=== PATIENT | female | born 1955 | race African-American/Black ===

== ENCOUNTER 2020-04-20 08:44 | Outpatient (CLI) | payer OTHER, SELFPAY ==
--- NOTE | ~2020-04-20 | MM_ITS ---
EXAMINATION: MM screening [facility] w [facility] HISTORY: Screening TECHNIQUE: Craniocaudal and mediolateral oblique 3-D tomosynthesis images were obtained and synthetic 2-D images were generated. CAD analysis was submitted and interpreted. COMPARISON: Comparison to multiple prior studies sequentially, with oldest reviewed study dated 02/2012. BREAST PARENCHYMAL COMPOSITION: There are scattered areas of fibroglandular density. FINDINGS: There is a pacemaker battery pack overlying the left breast on MLO view. There is no eviden ce of suspicious mass, calcification, or architectural distortion to suggest malignancy in either marian ast. There has been no suspicious interval change. IMPRESSION: 1. No mammographic evidence of malignancy. 2. Recommend routine screening mammography in one year. BI-RADS Category 1: Negative Reviewed, dictated and finalized at location A.
--- NOTE | ~2020-04-20 | DEXA_ITS ---
Bone Density Report Name: Jocelin Erwin Age: 64 Sex: Female Ethnicity: Black Date of : 1955 Indication: postmenopausal; height loss; Referring Provider: PHYSICIAN NOT ON STAFF Study: Bone densitometry was performed. Exam Date: April 20, 2020 Accession number: [id number] Bone Density: Region BMD T-score Z-score Classification AP Spine (L1-L4) 1.139 0.8 1.9 Normal Femoral Neck (Left) 0.702 -1.3 -0.5 Osteopenia Total Hip (Left) 0.936 0.0 0.4 Normal Total Hip Bilateral Avg 0.941 0.0 0.5 Normal Femoral Neck (Right) 0.730 -1.1 -0.3 Osteopenia Total Hip (Right) 0.946 0.0 0.5 Normal World Health Organization criteria for BMD impression classify patients as: Normal (T-score at or above -1.0), Osteopenia (T-score between -1.0 and -2.5), or Osteoporosis (T-score at or below -2.5). 10-year Fracture Risk(1): Major Osteoporotic Fracture 3.8% Hip Fracture 0.3% Reported Risk Factors: [place] (Black), Neck BMD=0.702, BMI=29.2 (1) FRAX(R) Version 3.08. Fracture probability calculated for an untreated patient. Fracture probability may be lower if the patient has received treatment. Previous Exams: Region Exam Age BMD T-score BMD Change BMD Change Date g/cm2 vs Baseline vs Previous AP Spine(L1-L4) 04/20/2020 64 1.139 0.8 0.009(0.8%)# 0.068(6.4%)* 11/05/2016 61 1.070 0.2 -0.059(-5.2%)# 0.018(1.7%) 05/18/2014 58 1.052 0.0 -0.077(-6.8%)# -0.035(-3.2%)# 12/21/2011 56 1.087 0.4 -0.042(-3.7%)# -0.042(-3.7%)# 04/09/2008 52 1.129 0.7 Total Hip(Left) 04/20/2020 64 0.936 0.0 -0.034(-3.5%)# -0.004(-0.5%) 11/05/2016 61 0.941 0.0 -0.029(-3.0%)# -0.016(-1.6%) 05/18/2014 58 0.956 0.1 -0.014(-1.4%)# -0.028(-2.9%)# 12/21/2011 56 0.985 0.3 0.014(1.5%)# 0.014(1.5%)# 04/09/2008 52 0.970 0.2 Total Hip(Right) 04/20/2020 64 0.946 0.0 -0.014(-1.5%)# -0.001(-0.1%) 11/05/2016 61 0.947 0.0 -0.013(-1.4%)# 0.009(1.0%) 05/18/2014 58 0.938 0.0 -0.022(-2.3%)# -0.044(-4.4%)# 12/21/2011 56 0.981 0.3 0.021(2.2%)# 0.021(2.2%)# 04/09/2008 52 0.960 0.1 *Denotes significance at 95% confidence level, LSC for AP Spine = 0.022 g/cm2, LSC for Total Hip = 0.027 g/cm2 Clinical Information Provided by Patient: Patient maximum height was 63 Menopause Age: 49 Onset of menses at age 7 Number of children 2 Impression: The patient has low bone mass
== END 2020-04-20 08:45 | disposition home or self-care (01) ==
LOC: ANHIMG 08:48
DX: Z12.31 Encounter for screening mammogram for malignant neoplasm of breast (principal); Z78.0 Asymptomatic menopausal state; M85.852 Other specified disorders of bone density and structure, left thigh; M85.851 Other specified disorders of bone density and structure, right thigh
CPT/HCPCS: 77063; 77067; 77080

== ENCOUNTER 2021-09-06 07:46 | Outpatient (CLI) | payer MEDICARE, OTHER, SELFPAY ==
--- NOTE | ~2021-09-06 | MM_ITS ---
EXAMINATION: MM screening [facility] BI w duncan HISTORY: Screening mammogram TECHNIQUE: Craniocaudal and mediolateral oblique 3-D tomosynthesis images were obtained and synthetic 2-D images were generated. CAD analysis was submitted and interpreted. COMPARISON: 04/20/2020, 04/15/2019, 11/05/2016 BREAST PARENCHYMAL COMPOSITION: There are scattered areas of fibroglandular density. FINDINGS: There is no evidence of suspicious mass, calcification, or architectural distortion to sugg est malignancy in either breast. There has been no suspicious interval change. IMPRESSION: 1. No mammographic evidence of malignancy. 2. Recommend routine screening mammography in one year. BI-RADS Category 1: Negative Reviewed, dictated and finalized at location A. BINDER STRIPPER
== END 2021-09-06 07:47 | disposition home or self-care (01) ==
LOC: ANHIMG 07:52
DX: Z12.31 Encounter for screening mammogram for malignant neoplasm of breast (principal)
CPT/HCPCS: 77063; 77067

== ENCOUNTER 2022-09-13 08:50 | Outpatient (CLI) | payer MEDICARE, OTHER, SELFPAY ==
--- NOTE | ~2022-09-13 | MM_ITS ---
EXAMINATION: MM screening [facility] w duncan HISTORY: Screening mammogram TECHNIQUE: Craniocaudal and mediolateral oblique 3-D tomosynthesis images were obtained and synthetic 2-D images were generated. CAD analysis was submitted and interpreted. COMPARISON: 09/06/2021, 04/20/2020, 04/15/2019 bilateral screening mammogram examinations BREAST PARENCHYMAL COMPOSITION: There are scattered areas of fibroglandular density. FINDINGS: There is no evidence of suspicious mass, calcification, or architectural distortion to sugg est malignancy in either breast. There has been no suspicious interval change. IMPRESSION: 1. No mammographic evidence of malignancy. 2. Recommend routine screening mammography in one year. BI-RADS Category 1: Negative Reviewed, dictated and finalized at location A. ING FURNACE OPERATOR
--- NOTE | ~2022-09-13 | DEXA_ITS ---
Bone Density Report Name: JASPER FOSTER Age: 67 Sex: Female Ethnicity: Black Date of : 1955 Indication: postmenopausal; screening for osteoporosis; height loss; Referring Provider: SASHA CARLOS Study: Bone densitometry was performed. Exam Date: September 13, 2022 Accession number: [id number] Bone Density: Region BMD T-score Z-score Classification AP Spine(L1-L4) 1.168 1.1 2.3 Normal Femoral Neck (Left) 0.737 -1.0 -0.1 Normal Total Hip (Left) 0.961 0.2 0.6 Normal Femoral Neck (Right) 0.739 -1.0 -0.1 Normal Total Hip (Right) 0.944 0.0 0.5 Normal Total Hip Mean 0.953 0.1 0.6 Normal World Health Organization criteria for BMD impression classify patients as: Normal (T-score at or above -1.0), Osteopenia (T-score between -1.0 and -2.5), or Osteoporosis (T-score at or below -2.5). 10-year Fracture Risk: FRAX not reported because: All T-scores for Spine Total, Hip Total, Femoral Neck at or above -1.0 Previous Exams: Region Exam Age BMD T-score BMD Change BMD Change Date g/cm2 vs Baseline vs Previous AP Spine (L1-L4) 09/13/2022 67 1.168 1.1 0.116 (11.0%)* 0.029 (2.6%)* 04/20/2020 64 1.139 0.8 0.087 (8.2%)* 0.068 (6.4%)* 11/05/2016 61 1.070 0.2 0.018 (1.7%) 0.018 (1.7%) 05/18/2014 58 1.052 0.0 Total Hip(Left) 09/13/2022 67 0.961 0.2 0.005 (0.5%) 0.025 (2.7%) 04/20/2020 64 0.936 0.0 -0.020 (-2.1%) -0.004 (-0.5%) 11/05/2016 61 0.941 0.0 -0.016 (-1.6%) -0.016 (-1.6%) 05/18/2014 58 0.956 0.1 Total Hip(Right) 09/13/2022 67 0.944 0.0 0.007 (0.7%) -0.001 (-0.2%) 04/20/2020 64 0.946 0.0 0.008 (0.8%) -0.001 (-0.1%) 11/05/2016 61 0.947 0.0 0.009 (1.0%) 0.009 (1.0%) 05/18/2014 58 0.938 0.0 *Denotes significance at 95% confidence level, LSC for AP Spine = 0.022 g/cm2, LSC for Total Hip = 0.027 g/cm2 Clinical Information Provided by Patient: Has used the following medications: Vitamin D Patient maximum height was 63 Menopause Age: 34 Onset of menses at age 7 Number of children 2 Impression: The patient has normal bone mass. No significant bone loss was observed. Discussion: BONE DENSITY IS ABOVE THE MINIMUM DESIRABLE LEVEL AT ALL SKELETAL SITES TESTED. This patient?s bone mineral density is above the minimum desirable level (T-score -1.0 or better) at all sites measured. The patient should follow a healthful lifestyle (good nu
== END 2022-09-13 08:51 | disposition home or self-care (01) ==
DX: Z12.31 Encounter for screening mammogram for malignant neoplasm of breast (principal); Z78.0 Asymptomatic menopausal state
CPT/HCPCS: 77063; 77067; 77080

== ENCOUNTER 2023-12-25 08:32 | Outpatient (CLI) | payer MEDICARE, OTHER, SELFPAY ==
--- NOTE | ~2023-12-25 | MM_ITS ---
EXAMINATION: MM screening [facility] w duncan HISTORY: Screening mammogram TECHNIQUE: Craniocaudal and mediolateral oblique 3-D tomosynthesis images were obtained and synthetic 2-D images were generated. CAD analysis was submitted and interpreted. COMPARISON: 09/13/2022, 09/06/2021 bilateral screening mammogram examinations BREAST PARENCHYMAL COMPOSITION: There are scattered areas of fibroglandular density. FINDINGS: Pacemaker device overlies the left axillary tail area and axilla on the MLO view. There is no evidence of suspicious mass, calcification, or architectural distortion to suggest malignancy in e ither breast. There has been no suspicious interval change. IMPRESSION: 1. No mammographic evidence of malignancy. 2. Recommend routine screening mammography in one year. BI-RADS Category 1: Negative Reviewed, dictated and finalized at location A.
== END 2023-12-25 08:33 | disposition home or self-care (01) ==
PROVIDERS: PCP Internal Medicine; Visit Provider Internal Medicine
DX: Z12.31 Encounter for screening mammogram for malignant neoplasm of breast (principal)
CPT/HCPCS: 77063; 77067

== ENCOUNTER 2025-02-17 09:23 | Outpatient (CLI) | payer MEDICARE, OTHER, SELFPAY ==
--- NOTE | ~2025-02-17 | MM_ITS ---
EXAMINATION: MM screening [facility] HISTORY: Screening TECHNIQUE: Craniocaudal and mediolateral oblique 3-D tomosynthesis images were obtained and synthetic 2-D images were generated. CAD analysis was submitted and interpreted. COMPARISON: 12/25/2023 through 04/15/2019 BREAST PARENCHYMAL COMPOSITION: Not dense: There are scattered areas of fibroglandular density. FINDINGS: There is no evidence of suspicious mass, calcification, or architectural distortion to sug gest malignancy in either breast. There has been no suspicious interval change. A radiopaque pacemake r battery overlies and partially obscures the left axilla. IMPRESSION: 1. No mammographic evidence of malignancy. 2. Recommend routine screening mammography in one year. BI-RADS Category 1: Negative Reviewed, dictated and finalized at location B.
--- OUTSIDE RECORDS SUMMARY | 2025-02-17 09:32 | XMS_ITS | Encounter Summary ---
Author Organization [facility] Healthcare Address [address] [place] [id number] Care Team Providers Care Sewer Pipe Press Operator Name Role Phone Maurice Lima MD Primary Care Provider [phone] Reason for Visit * Reason Onset Date Comments tachycardia 02/16/2025 Encounter Details Date Type Department Care Team (Late st Contact Info) Description 02/16/2025 Telephone [facility] Medical Group Cardiology [address] [facility] [address] [id number] Portillo Maddox MD [address] [place] [address] [address] tachycardia Social History Tobacco Use Types Packs/Day Years Used Date Smoking Tobacco: Never Smokeless Tobacco: Never [facility] Utilities Answer Date Recorded In the past 12 months has [employer] electric, gas, oil, or water company threatened to shut off services in your home? No 11/15/2023 Social Connection and Isolat ion Panel [NHANES] Answer Date Recorded In a typical week, how many times do you talk on the phone with family, friends, or neighbors? More than three times a week 11/18/2023 How often do you get togethe r with friends or relatives? More than three times a week 11/18/2023 How often do you attend chur ch or cheondoism services? Never 11/18/2023 Do you belong to any clubs o r organizations such as hinduism groups, unions, fraternal or athletic groups, or school groups? No 11/18/2023 How often do you attend meet ings of the clubs or organizations you belong to? Never 11/18/2023 Are you , , di vorced, , never , or living with a partner? Never 11/18/2023 AUDIT-C Answer Date Recorded Q1: How often do you have a drink containing alcohol? Never 02/11/2025 Q2: How many drinks containi ng alcohol do you have on a typical day when you are drinking? Patient does not drink Q3: How often do you have si x or more drinks on one occasion? Never 02/11/2025 Overall Financial Resource Strain (CARDIA) Answe r Date Recorded How hard is it for you to pa y for the very basics like food, housing, medical care, and heating? Not hard at all 11/15/2023 PHQ-2 Answer Date Recorded PHQ-2 Total Score (If total score is 3 or more points, staff should administer the PHQ-9) 0 10/15/2024 Hunger Vital Sign Answer Date Recorded Within the past 12 months, y ou worried that your food would run out before you got the money to buy more. Never true 11/15/19 24 Within the past 12 months, t he food you bought just didn't last and you didn't have money to get more. Never true 11/15/2023 PRAPARE - Transportation Answer Date Re corded In the past 12 months, has l ack of transportation kept you from medical appointments or from getting medications? No 09/2023 In the past 12 months, has l ack of transportation kept you from meetings, work, or from getting things needed for daily living? No 11/15/2023 Housing Stability Vital Sign Answer [place] e Recorded In the last 12 months, was t here a time when you were not able to pay the mortgage or rent on time? No 11/15/2023 In the last 12 months, how many places have you lived? 1 11/15/2023 In the last 12 months, was t here a time when you did not have a steady place to sleep or slept in a long-term (including now)? No 11/15/2023 Personal Safety Answer Date Recorded Have you ever been in or are you currently in a harmful physical or emotional relationship or is someone making you feel afraid or unsafe? 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 PT states she stays active throughout the entire day starting at 4 am. She said her level of activity carries through the afternoon and evening. * Telephone Encounter - Marilin Broussard RN - 02/16/2025 8:18 AM CDT Frequent episodes of device-declared SVT and non-sustained VT since 02/10/2025, episodes appear to be sinus rhythm, rate 140s. Called Trevor to assess for symptoms and activity -- left voice message for her to return call. documented in this encounter Plan of Treatment Not on file documented as of this encounter Visit Diagnoses Not on filedocumented in this encounter Care Teams Sewer Pipe Press Operator Relationship Specialty Start Date End Date Maurice Lima MD [address] [place] [address] [place] [id number] PCP - General Internal Medicine 08/01/23 documented as of this encounter
--- OUTSIDE RECORDS SUMMARY | 2025-02-17 09:32 | XMS_ITS | Clinical Summary ---
Author Organization [facility] Address [address] [place] [address] [place] [address] Phone Care Team Providers Care Pianos And Organs Salesperson Name Role Phone Not Found, Stl Primary Care Provider Unavailabl e Allergies Active Allergy Reactions Criticality Noted Date Comments Sulfa (Sulfonamide Antibiotics) Rash Low 09/18 Medications carvedilol (COREG) 25 mg tablet Take 1 Tab by mouth 2 times daily. 180 Tab 3 04/05/2014 Active triamterene-hyd rochlorothiazid e (DYAZIDE) 37.5-25 mg capsule Take by mouth. Take one capsule 3x/week Active lisinopril (PRINIVIL) 40 mg tablet Take by mouth. Take 1/2 tablet in AM, and 1 tablet in PM Active Active Problems Patient Care Coordination No te Formatting of this note migh t be different from the original. Hand Clerical Verifier Dr. Fito Pollard EP - Dr. Danilo Harris Problem Noted Date Diagnosed Date Neutropenia 07/02/2013 Overview (07/22/2013): Previous heme work-up done at [facility], including bone marrow biopsy, was normal. Automatic implantable cardioverter-defibrillator in situ 06/30/2013 Hyperlipidemia 01/03/2012 HTN (hypertension) 10/16/2010 Overview (08/16/2011): Diagnosed in 1990. Dilated cardiomyopathy 10/16/2010 Overview (09/03/2013): Nonischemic cardiomyopathy, defined by echocardiography 10/25/09 (left ventricular ejection fraction 20%), with reportedly no CAD by cardiac catheterization 11/04/09, and repeat echocardiogram 09/13/10 demonstrating left ventricular ejection fraction of 20%. She declined ICD and then stopped wearing a Life Vest and sustained an [id number] cardiac arrest; BiV ICD placed 06/24/13 LVEF 24% by echocardiogram 06/24/13. Mitral regurgitation 10/16/2010 Overview (08/16/2011): Mild to moderate by echocardiogram 09/13/10. Tricuspid regurgitation 10/16/2010 Overview (08/16/2011): Mild to moderate by echocardiogram 09/13/10. Family History Medical History Relation Name Comments Breast Cancer Maternal Aunt 1 survived an d living Breast Cancer Maternal Aunt 2 survived an d living Lung Cancer Maternal Aunt 3 Cancer Mother esphageal Hypertension Sister Relation Name Status Comments Father Alive alive at 75 wit h no known heart disease Maternal Aunt 1 Maternal Aunt 2 Maternal Aunt 3 Mother (Age 75) due t o renal failure shortly after being diagnosed with esophageal cancer Sister Social History Tobacco Use Types Packs/Day Years Used Date Smoking Tobacco: Never Smokeless Tobacco: Never Alcohol Use Standard Drinks/Week Comments No 0 (1 standard drink = 0.6 oz pur e alcohol) Comments No Sex and Gender Information Value Date Recorded Sex Assigned at Not on file Legal Sex Female 5:58 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 Gender Identity Not on file Sexual Orientation Not on file 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 Not on file Not on file Not on file Last Filed Vital Signs Vital Sign Reading Time Taken Comments Blood Pressure 156/90 09/22/2014 8:50 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 Pulse 70 09/22/2014 8:50 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 Temperature 37 C (98.6 F) 06/25/2013 9:25 AM CDT Respiratory Rate 12 09/22/2014 8:50 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 Oxygen Saturation 96% 06/25/2013 9:25 AM CDT Inhaled Oxygen Concentration - - Weight 69.4 kg (153 lb) 09/22/2014 8:50 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 Height 156.8 cm (5' 1.75) 09/22/2014 8:50 AM CS T Body Mass Index 28.21 09/22/2014 8:50 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 Plan of Treatment Health Maintenance Due Date Last Done Comments DTAP/TDAP/TD VACCINES (1 - Tdap) 1973 PNEUMOCOCCAL VACCINE 50+ YEA RS (1 of 2 - PCV) 1973 FIT-DNA Q 3 years 1999 FIT/FOBT Q 1 year 1999 Flex Sig/CT Colonography Q 5 years 1999 ZOSTER VACCINE (1 of 2) 2004 OSTEOPOROSIS SCREENING 2019 12/25/2011 BREAST CANCER SCREENING 04/15/2020 04/15/2019, 12/24 INFLUENZA VACCINE (#1) 2024 COLORECTAL SCREENING 03/23/2027 03/23/2017, 09/16/18 92 Colorectal Cancer Screening 03/23/2027 RSV VACCINE (60+ or ) (1 - 1-dose 75+ series) 2029 Advance Directives For more information, please contact: [phone] * Full Code (Latest Code Status on File) Date Activated Date Inactivated Comments 06/24/2013 6:41 PM 06/25/2013 5:13 PM * Full Code Date Activated Date Inactivated Comments 06/19/2013 7:00 AM 06/24/2013 6:41 PM Care Teams Pianos And Organs Salesperson Relationship Specialty Start Date End Date Not Found, Stl NO ADDRESS ON FILE PCP - General 03/24/14
--- OUTSIDE RECORDS SUMMARY | 2025-02-17 09:32 | XMS_ITS | Referral Summary ---
Author Organization [facility] Address [address] [place] [phone] Care Team Providers Care Image Processing Engineer Name Role Phone Maurice Lima MD Primary Care Provider [phone] Encounters Date Type Department Care Team Description 02/16/2025 Telephone [facility] Cardiology [address] [place] [address] [phone] Portillo Maddox MD tachycardia 02/11/2025 9:30 AM CDT Office Visit [facility] Medical [facility] Internal Medicine [address] [place] [address] [place] [phone] Maurice Lima MD Chronic combined systolic (congestive) and diastolic (congestive) heart failure (HCC) (Primary Dx); Dyslipidemia; Hypertension, essential; Nonischemic cardiomyopathy (HCC); Osteopenia of multiple sites; BMI < 18.5; Breast cancer screening by mammogram; Cardiac resynchronization therapy defibrillator (PIE BAKER-D) in place 01/27/2025 Orders Only [facility] Internal Medicine [address] [place] [address] [place] [phone] Maurice Lima MD 01/08/2025 7:00 AM CDT Ancillary Procedure [facility] Cardiology [address] [place] [address] [phone] Nonischemic cardiomyopathy (HCC); V-tach (HCC); Cardiac resynchronization therapy defibrillator (PIE BAKER-D) in place 12/15/2024 Telephone [facility] Cardiology [address] [place] [address] Portillo Maddox MD Device alert 11/19/2024 Results Follow-Up [facility] Internal Medicine [address] [place] [phone] Maurice Lima MD Dexa Axial Skeleton Bone Density 1 or 2 Site 11/18/2024 8:41 AM SCIENCE TEACHER - 11/18/2024 11:59 PM SCIENCE TEACHER Hospital Encounter [facility] Medical Office Bldg 1 Breast [facility] [address] [facility] [address] [place] [address] Screening due; Postmenopausal Discharge Disposition: Discharge to home or self care from Last 3 Months Allergies Active Allergy Reactions Criticality Noted Date Comments Amiodarone Other (See comments) Low 04/10/2024 Alopecia Sulfa (Sulfonamide Antibiotics) Rash Medium 10/16/2010 Medications MAGNESIUM SULFATE ORAL Take 400 mg by mouth daily Take 2 tab daily Active spironolactone (ALDACTONE) 50 mg tablet Take 1 tablet (50 mg total) by mouth daily 90 tablet 1 5 10/15/19 26 Active cholecalciferol (VITAMIN D-3) 2000 unit capsule Take 2 capsules (4,000 Units total) by mouth daily 180 capsule 1 5 Active metoprolol XL (TOPROL-XL) 100 mg 24 hr tablet Take 1 tablet (100 mg total) by mouth daily 90 tablet 1 5 02/12/20 26 Active valsartan (DIOVAN) 80 mg tablet Take 1 tablet (80 mg total) by mouth daily 90 tablet 1 5 02/12/20 26 Active metoprolol XL (TOPROL-XL) 100 mg 24 hr tablet Take 1 tablet (100 mg total) by mouth daily 90 tablet 1 5 02/12/20 25 Discontinu ed(Reorder ) cholecalciferol (VITAMIN D-3) 2000 unit capsule Take 2 capsules (4,000 Units total) by mouth daily 180 capsule 1 5 02/12/20 25 Discontinu ed(Reorder ) sacubitriL-vals madonna (ENTRESTO) 97-103 mg tabletIndicatio ns:Heart Failure,chronic heart failure Take 2 tablets in morning and take two tablets in the evening 360 tablet 1 5 02/12/20 25 Discontinu ed(Therapy completed) Active Problems Problem Noted Date Diagnosed Date Osteopenia of multiple sites 02/11/2025 Assessment & Plan (02/11/2025 7:16 AM CDT): DEXA scan in November 2024 showed osteopenia. Take calcium 500 mg daily and continue vitamin-D 2000 units daily Hypomagnesemia 10/15/2024 Assessment & Plan (10/15/2024 12:37 PM SCIENCE TEACHER): Magnesium level is slightly low at 1.6. She takes magnesium 1 tablet daily. I told her to take it twice daily Nonrheumatic tricuspid valve regurgitation 01/07 SVT (supraventricular tachycardia) 01/03/2024 High risk medication use 01/03/2024 Junctional tachycardia 11/15/2023 Assessment & Plan (11/29/2023 10:53 AM CDT): Resolved Assessment & Plan (11/15/2023 8:09 AM SCIENCE TEACHER): EKG showed junctional tachycardia. Patient was directed immediately to the emergency room. Acute systolic (congestive) heart failure 2023 Assessment & Plan (11/29/2023 10:52 AM CDT): Patient with acute systolic congestive heart failure. She will continue current medications. We gave her samples of Entresto. Continue low-salt diet. Follow-up with the aerial applicator pilot. BMI 24.0-24.9, adult 08/22/2023 Assessment & Plan (08/22/2023 4:02 PM SCIENCE TEACHER): Continue a heart healthy diet with regular physical activity Encounter for well woman jacqueline sosa with routine gynecological exam 08/22/2023 Assessment & Plan (08/22/2023 4:02 PM SCIENCE TEACHER): Pap smear with HPV cotesting completed. Order for mammogram. We will notify the patient of all results. Follow up in one year or sooner if needed. Patient verbalizes understanding regarding plan of care and all questions answered. Nonischemic cardiomyopathy 08/01/2023 Assessment & Plan (02/11/2025 7:15 AM CDT): Patient has ejection fraction of 30-35%. She will continue current medications. She will continue diuretics and low-salt diet. She is followed by the aerial applicator pilot. Assessment & Plan (10/15/2024 7:05 AM SCIENCE TEACHER): Patient has ejection fraction of 30-35%. She will continue current medications. She will continue diuretics and low-salt diet. She is followed by the aerial applicator pilot. Assessment & Plan (07/15/2024 7:36 AM CDT): Patient has ejection fraction of 30-35%. She will continue current medications. She will continue diuretics and low-salt diet. She is followed by the aerial applicator pilot. Assessment & Plan (04/09/2024 7:37 AM CDT): Patient has ejection fraction of 30-35%. She will continue current medications. She will continue diuretics and low-salt diet. She is followed by the aerial applicator pilot. Assessment & Plan (01/14/2024 7:52 AM CDT): Patient has ejection fraction of 30-35%. She will continue current medications. She will continue diuretics and low-salt diet. She is followed by the aerial applicator pilot. Assessment & Plan (11/29/2023 10:53 AM CDT): Patient has ejection fraction of 30-35%. She will continue current medications. She will continue diuretics and low-salt diet. She is followed by the aerial applicator pilot. Assessment & Plan (08/01/2023 9:17 AM SCIENCE TEACHER): Status post AICD placement and followed by the aerial applicator pilot. Hypertension, essential 08/01/2023 Assessment & Plan (02/11/2025 7:15 AM CDT): Continue current medications. Discussed low-salt diet. Discussed exercise on regular basis. Will continue to monitor Assessment & Plan (10/15/2024 7:05 AM SCIENCE TEACHER): Continue current medications. Discussed low-salt diet. Discussed exercise on regular basis. Will continue to monitor Assessment & Plan (07/15/2024 10:14 AM CDT): Blood pressure is high. Patient said that her blood pressure at home runs below 140 systolic. She has slight leg edema bilaterally. Increase spironolactone to 50 mg daily. Assessment & Plan (04/09/2024 7:37 AM CDT): Continue current medications. Discussed low-salt diet. Discussed exercise on regular basis. Will continue to monitor Assessment & Plan (01/14/2024 7:51 AM CDT): Continue current medications. Discussed low-salt diet. Discussed exercise on regular basis. Will continue to monitor Assessment & Plan (11/29/2023 10:53 AM CDT): Continue current medications. Discussed low-salt diet. Discussed exercise on regular basis. Will continue to monitor Assessment & Plan (11/14/2023 4:53 PM SCIENCE TEACHER): Patient is maintained on olmesartan and carvedilol Assessment & Plan (08/01/2023 9:17 AM SCIENCE TEACHER): Blood pressure is elevated. Patient said that her blood pressure is always high when she goes to doctor's offices. Her blood pressure when she was seen by her aerial applicator pilot recently was 160/80. Patient said that her blood pressure is normal at home. Continue low-salt diet. She does not want adjustments in her medications. Ventricular tachycardia 08/01/2023 Assessment & Plan (10/15/2024 12:37 PM SCIENCE TEACHER): Status post AICD placement. Followed by the aerial applicator pilot Assessment & Plan (11/29/2023 10:53 AM CDT): Status post AICD placement Assessment & Plan (11/14/2023 4:53 PM SCIENCE TEACHER): Status post AICD placement Assessment & Plan (08/01/2023 9:17 AM SCIENCE TEACHER): Status post AICD and followed by the aerial applicator pilot Dyslipidemia 08/01/2023 Assessment & Plan (02/11/2025 7:15 AM CDT): Patient is vegetarian. Continue low-fat diet. Assessment & Plan (10/15/2024 7:05 AM SCIENCE TEACHER): Patient is vegetarian. Continue low-fat diet. Assessment & Plan (07/15/2024 7:36 AM CDT): Patient is vegetarian. Continue low-fat diet. Assessment & Plan (04/09/2024 7:36 AM CDT): Patient is vegetarian. Continue low-fat diet. Assessment & Plan (01/14/2024 7:51 AM CDT): Patient is vegetarian. Continue low-fat diet. Assessment & Plan (11/29/2023 10:53 AM CDT): Patient is vegetarian. Continue low-fat diet. Assessment & Plan (08/01/2023 9:16 AM SCIENCE TEACHER): Patient is vegetarian. Continue low-fat diet. Blood work was ordered Chronic combined systolic (c ongestive) and diastolic (congestive) heart failure 08/01/2023 Assessment & Plan (02/11/2025 10:07 AM CDT): Patient is maintained on metoprolol, Entresto and spironolactone. Continue low- salt diet. Patient could not afford Entresto. We will stop the medication and start her on valsartan 80 mg daily. Assessment & Plan (10/15/2024 7:05 AM SCIENCE TEACHER): Patient is maintained on metoprolol, Entresto and spironolactone. Continue low- salt diet Assessment & Plan (07/15/2024 10:13 AM CDT): Patient is controlled on current medications. She has mild bilateral leg edema. Increase spironolactone to 50 mg daily.. Followed by the aerial applicator pilot Assessment & Plan (04/09/2024 7:36 AM CDT): Patient is controlled on current medications. She is euvolemic. Followed by the aerial applicator pilot Assessment & Plan (01/14/2024 7:50 AM CDT): Patient is controlled on current medications. She is euvolemic. Followed by the aerial applicator pilot Assessment & Plan (11/14/2023 4:53 PM SCIENCE TEACHER): Patient with history of chronic congestive heart failure. Patient presented with coughing and bilateral leg edema. Patient was found to have junctional tachycardia with heart rate of 140 per minute. Discuss that with the patient and her son and she will be directed to the emergency room for further evaluation. Assessment & Plan (08/01/2023 9:16 AM SCIENCE TEACHER): Patient is asymptomatic. Most recent ejection fraction was normal. Patient is followed by the aerial applicator pilot Cardiac resynchronization th erapy defibrillator (PIE BAKER-D) in place 08/01/2023 Assessment & Plan (02/11/2025 10:07 AM CDT): Patient has ICD for history of V-tach Assessment & Plan (01/14/2024 7:56 AM CDT): Patient has ICD for history of V-tach Immunizations Immunization Administration Dates Next Due Influenza, Unspecified 10/15/2024(Deferr ed: Patient Refused),07/15/2024(Deferred: Patient Refused),04/09/2024(Deferred: Patient Refused),11/14/2023(Deferred: Patient decision),08/22/2023(Deferred: Patient decision),08/01/2023(Deferred: Patient decision),06/30/2022(Deferred: Patient decision),06/27/2022(Deferred: Patient decision),06/21/2022(Deferred: Patient Refused) Social History Tobacco Use Types Packs/Day Years Used Date Smoking Tobacco: Never Smokeless Tobacco: Never Tobacco Cessation:Counseling Given: Not Answered [facility] Utilities Answer Date Recorded In the past 12 months has [employer], gas, oil, or water [employer] threatened to shut off services in your [...] often do you attend chur ch or protestant services? Never 11/18/2023 Do you belong to any clubs o r organizations such as latter-day groups, unions, fraternal or athletic groups, or [...] place to sleep or slept in a fci (including now)? No 11/15/2023 Personal Safety Answer Date Recorded Have you ever been in or are you currently in a harmful physical or emotional relationship or is someone making you feel afraid or unsafe? Denies 11/14/2023 Comments No Sex and Gender Information Value Date Recorded Sex Assigned at Not on file Legal Sex Female 6:39 AM SCIENCE TEACHER Gender Identity Not on file Sexual Orientation Not on file Last Filed Vital Signs Vital Sign Reading Time Taken Comments Blood Pressure 138/80 02/11/2025 9:15 AM CDT Pulse 117 02/11/2025 9:15 AM CDT Temperature 36.7 C (98 F) 02/11/2025 9:15 AM CDT Respiratory Rate 18 02/11/2025 9:15 AM CDT Oxygen Saturation 99% 02/11/2025 9:15 AM CDT Inhaled Oxygen Concentration - - Weight 47.2 kg (104 lb) 02/11/2025 9:15 AM CDT Height 160 cm (5' 3) 02/11/2025 9:15 AM CDT Body Mass Index 18.42 02/11/2025 9:15 AM CDT Plan of Treatment Not on file Procedures Procedure Name Priority Date/Time Associated Diagnosis Comments MAGNESIUM Routine 01/27/2025 12:20 PM CDT COMPREHENSIVE METABOLIC PANEL Routine 01/27/2025 12:20 PM CDT SPECIMEN STATUS REPORT Routine 01/27/2025 12:20 PM CDT CBC/DIFF AMBIGUOUS DEFAULT Routine 01/27/2025 12:20 PM CDT DEVICE CHECK - REMOTE Routine 01/08/2025 9:30 AM CDT Nonischemic cardiomyopathy (HCC) V-tach (HCC) Cardiac resynchronization therapy defibrillator (PIE BAKER-D) in place DEXA AXIAL SKELETON BONE DENSITY 1 OR MORE SITES Schedule Routine, Read Routine (OP Routine) 11/18/2024 9:07 AM SCIENCE TEACHER Screening due Postmenopausal HM MAMMOGRAPHY Routine 12/25/2023 COLONOSCOPY Routine 12/17/2023 4:24 PM CDT from Last 3 Months or Most Recently Relevant to Health Maintenance Results * Specimen Status Report (01/27/2025 12:20 PM CDT) Specimen Status Report Comment [facility] - 01 Comment: Eleazar Whittaker CMP14 Default Eleazar Whittaker CMP14 Default A hand-written panel/profile was received from your office. In accordance with the [facility] Ambiguous Test Code Policy dated March 2003, we have completed your order by using the closest currently or formerly recognized AMA panel. We have assigned Comprehensive Metabolic Panel (14), Test Code #814157 to this request. If this is not the testing you wished to receive on this specimen, please contact the [facility] Department to clarify the test order. We appreciate your business. 01/27/2025 12:2 0 PM CDT 01/27/2025 Narrative [facility] - 01/28/2025 7:09 AM CDT Performed at: [address] [place] [id number] Sugar Chipper Machine Operator: Jasper Montoya PhD, Phone: [phone] us Maurice Lima MD LAB BLOOD ORDERABLES Final Result [facility] - 01 * (ABNORMAL) CBC/Diff Ambiguous Default (01/27/2025 12:20 PM CDT) WBC 4.9 3.4 - 10.8 x10E3/uL [facility] - 01 RBC 3.98 3.77 - 5.28 x10E6/uL [facility] - 01 Hgb 10.5(L) 11.1 - 15.9 g/dL [facility] - 01 Hct 34.5 34.0 - 46.6 % [facility] - 01 MCV 87 79 - 97 fL [facility] - 01 MCH 26.4(L) 26.6 - 33.0 pg [facility] - 01 MCHC 30.4(L) 31.5 - 35.7 g/dL [facility] - 01 Rdw 11.8 11.7 - 15.4 % [facility] - 01 Platelets 128(L) 150 - 450 x10E3/uL [facility] - 01 Neutrophils pct 67 Not Estab. % [facility] - 01 Lymphs pct 24 Not Estab. % [facility] - 01 Monocytes pct 9 Not Estab. % [facility] - 01 Eosinophils pct 0 Not Estab. % [facility] - 01 Basophil pct 0 Not Estab. % [facility] - 01 Neutrophil abs 3.3 1.4 - 7.0 x10E3/uL [facility] - 01 Lymphs (Absolute) 1.2 0.7 - 3.1 x10E3/uL [facility] - 01 Monocyte abs 0.4 0.1 - 0.9 x10E3/uL [facility] - 01 Eosinophils, abs 0.0 0.0 - 0.4 x10E3/uL [facility] - 01 Basophils, abs 0.0 0.0 - 0.2 x10E3/uL [facility] - 01 Immature Granulocytes 0 Not Estab. % [facility] - 01 Immature Grans (Abs) 0.0 0.0 - 0.1 x10E3/uL [facility] - 01 Comment: A hand-written panel/profile was received from your office. In accordance with the [facility] Ambiguous Test Code Policy dated March 2003, we have assigned CBC with Differential/Platelet, Test Code #416264 to this request. If this is not the testing you wished to receive on this specimen, please contact the [facility] Department to clarify the test order. We appreciate your business. 01/27/2025 12:2 0 PM CDT 01/27/2025 Narrative [facility] - 01/28/2025 7:09 AM CDT Performed at: [address] [id number] Sugar Chipper Machine Operator: Jasper Montoya PhD, Phone: [phone] Maurice Lima MD LAB BLOOD ORDERABLES Final Result Performing Organization Address [facility] Co de Phone Number [facility] - * Magnesium (01/27/2025 12:20 PM CDT) Magnesium 1.8 1.6 - 2.3 mg/dL [facility] - 01 01/27/2025 12:2 0 PM CDT 01/27/2025 Narrative [facility] - 01/28/2025 9:10 AM CDT Performed at: [address] [place] [id number] Sugar Chipper Machine Operator: Jasper Montoya PhD, Phone: [phone] Maurice Lima MD LAB BLOOD ORDERABLES Final Result Performing Organization Address [facility]/ZIP Co de Phone Number [facility] - * (ABNORMAL) Comprehensive metabolic panel (01/27/2025 12:20 PM CDT) Glucose 105(H) 70 - 99 mg/dL [facility] - 01 BUN 14 8 - 27 mg/dL [facility] - 01 Creatinine, Serum 0.61 0.57 - 1.00 mg/dL [facility] - 01 eGFR 96 >59 mL/min/1.7 3 [facility] - 01 BUN/creat ratio 23 12 - 28 [facility] - 01 Sodium 138 134 - 144 mmol/L [facility] - 01 Potassium, sr 4.4 3.5 - 5.2 mmol/L [facility] - 01 Chloride 103 96 - 106 mmol/L [facility] - 01 CO2 21 20 - 29 mmol/L [facility] - 01 Calcium 10.2 8.7 - 10.3 mg/dL [facility] - 01 Protein, sr 6.2 6.0 - 8.5 g/dL [facility] - 01 Albumin 3.9 3.9 - 4.9 g/dL [facility] - 01 Globulin, Total 2.3 1.5 - 4.5 g/dL [facility] - 01 Bilirubin, Total 0.5 0.0 - 1.2 mg/dL [facility] - 01 Alk phos 134(H) 44 - 121 IU/L [facility] - 01 AST 23 0 - 40 IU/L [facility] - 01 ALT 20 0 - 32 IU/L [facility] - 01 01/27/2025 12:2 0 PM CDT 01/27/2025 Narrative [facility] - 01/28/2025 9:10 AM CDT Performed at: - [address] [id number] Sugar Chipper Machine Operator: Jasper Montoya PhD, Phone: [phone] Specimen Comment: A courtesy copy of this report has been sent to [phone] Maurice Lima MD LAB BLOOD ORDERABLES Final Result [facility] - 01 * DEVICE CHECK - REMOTE (01/08/2025 9:30 AM CDT) Anatomical Region Laterality Modality Other Narrative 02/01/2025 12:32 PM CDT Table formatting from the original result was not included. Patient ID: Trevor Erwin is a 69 y.o. female. This patient has a(n) Stanley cardiac resynchronization therapy defibrillator. They had a routine remote transmission on 01/08/2025 Device implant indications: NICM, HFrEF Interrogation of the patient's device demonstrates the following: Presenting EGM: /BiV paced @ 89 bpm with PVCs Mode: DDDR 60/120 bpm Device Settings Right Atrium Right Ventricle Left Ventricle Sensitivity Auto Auto Pacing output Auto 1.625 V @ 0.5 ms Auto 2.125 V @ 0.5 ms Auto 2.25 V @ 0.5 ms Testing Measurements Right Atrium Right Ventricle Left Ventricle Sensitivity 3.8 mV 2.5 mV Impedance 300 ohms 650 ohms 360 ohms HV lead impedance 56 ohms Pacing threshold 0.625 V @ 0.5 ms 1.875 V @ 0.5 ms 1.75 V @ 0.5 ms Pacing % <1% 94% PIE BAKER Battery Status: 3.0 years to APRIL. Charge time 8.4 seconds. Episodes last 90 days: 9 AT/AF episodes: none stored. AF Semmes <1 % 60 SVT episodes and 32 high ventricular rate episode(s): episodes occur in clusters, viewable electrograms appear to be a mix of sinus tach and 1:1 SVT. No treated episodes. Comments: Programming appropriate for device measurements. Measured data stable. See attached report. Medications: Anticoagulant(s): n/a Antiarrhythmic(s): metoprolol succinate Plan: Remote device checks quarterly, as scheduled. In-office device check scheduled on 04/16/2025. Marilin Broussard RN ATTESTATION I have reviewed the device interrogation report associated with this encounter in detail. I agree with the documentation recorded/scanned into the electronic medical record. Recommendations: Continue current device follow-up. Portillo Maddox MD Blair Carmona MD [facility] Final Result * Dexa Axial Skeleton Bone Density 1 or 2 Site (11/18/2024 9:07 AM SCIENCE TEACHER) Anatomical Region Laterality Modality Body N/A Mammography 11/18/2024 2:54 PM SCIENCE TEACHER Narrative 11/18/2024 2:56 PM SCIENCE TEACHER EXAM DESCRIPTION: DEXA AXIAL SKELETON BONE DENSITY 1 OR MORE SITES REASON FOR STUDY: 69 y/o year old F with given history of: Annual screening due Postmenopausal Integration Project Manager/Model: [place] A (S/N [id number]) Facility LSC value of 0.022 for the AP spine, 0.027 for the femur, and 0.023 for the forearm. CLINICAL INFORMATION: Current height: 62 inches Maximum height: 63 inches Weight: 102 pounds Risk factors: Postmenopausal COMPARISON: None available FINDINGS: AP LUMBAR SPINE L1-L4: Total BMD is 1.060 g/cm2 T-score is -0.8 LEFT HIP: Total BMD is 0.815 g/cm2 T-score is -1.4 Femoral neck BMD is 0.660 g/cm2 T-score is -2.1 FRAX: 10 year risk for a major osteoporotic fracture is 3.9 %, 10 year risk for a hip fracture is 0.7 % IMPRESSION: Low Bone Mass. REFERENCE: Bone mineral density: T-Score: Normal (T-score above or = -1.0) Low bone mass (T-score between -1.0 and -2.5) replaces the previously used term osteopenia Osteoporosis (T-score = or below -2.5) Z-Score: Within the expected range for age (Z-score above -2.0) Below the expected range for age (Z-score is -2.0 or below) Please see below follow up recommendations. Medical evaluation for secondary causes of low bone mineral density may be appropriate. FRAX is a World Health Organization validated fracture risk assessment tool that calculates a person's 10 year probability of a major osteoporosis related fracture and hip fracture. According to the National Osteoporosis Foundation guidelines, postmenopausal women and men age 50 or older with low bone mass and a 10 year probability of a major osteoporosis related fracture = or greater than 20% or a 10 year probability of a hip fracture = or greater than 3% should be considered for pharmacological treatment for the prevention of osteoporosis. For further information, including treatment recommendations, please refer to the 2019 ISCD Official Positions (http://www.iscd.org) and the NOF's Clinician's Guide to Prevention and Treatment of Osteoporosis (http://www.nof.org/professionals/clinical-guidelines) THIS IS AN ELECTRONICALLY VERIFIED FINAL REPORT 11/18/2024 2:56 PM - Electronically signed by Adama Donaldson M.D. MF: [id number] Report ID: [id number] Reading Location: [id number] Procedure Note Adama Donaldson MD - 11/18/2024 EXAM DESCRIPTION: DEXA AXIAL SKELETON BONE DENSITY 1 OR MORE SITES REASON FOR STUDY: 69 y/o year old F with given history of: Annual screening due Postmenopausal Integration Project Manager/Model: [employer] A (S/N [id number]) Facility LSC value of 0.022 for the AP spine, 0.027 for the femur, and0.023 for the forearm. CLINICAL INFORMATION: Current height: 62 inches Maximum height: 63 inches Weight: 102 pounds Risk factors: Postmenopausal COMPARISON: None available FINDINGS: AP LUMBAR SPINE L1-L4: Total BMD is 1.060 g/cm2 T-score is -0.8 LEFT HIP: Total BMD is 0.815 g/cm2 T-score is -1.4 Femoral neck BMD is 0.660 g/cm2 T-score is -2.1 FRAX: 10 year risk for a major osteoporotic fracture is 3.9 %, 10 year risk fora hip fracture is 0.7 % IMPRESSION: Low Bone Mass. REFERENCE: Bone mineral density: T-Score: Normal (T-score above or = -1.0) Low bone mass (T-score between -1.0 and -2.5) replaces thepreviously used term osteopenia Osteoporosis (T-score = or below -2.5) Z-Score: Within the expected range for age (Z-score above -2.0) Below the expected range for age (Z-score is -2.0 or below) Please see below follow up recommendations. Medical evaluation forsecondary causes of low bone mineral density may be appropriate. FRAX is a World Health Organization validated fracture risk assessmenttool that calculates a person's 10 year probability of a major osteoporosisrelated fracture and hip fracture. According to the National OsteoporosisFoundation guidelines, postmenopausal women and men age 50 or older with low bonemass and a 10 year probability of a major osteoporosis related fracture = or greater than 20% or a 10 year probability of a hip fracture = or greaterthan 3% should be considered for pharmacological treatment for the preventionof osteoporosis. For further information, including treatment recommendations, please referto the 2019 ISCD Official Positions (http://www.iscd.org) and the NOF's Clinician's Guide to Prevention and Treatment of Osteoporosis (http://www.nof.org/professionals/clinical-guidelines) THIS IS AN ELECTRONICALLY VERIFIED FINAL REPORT 11/18/2024 2:56 PM - Electronically signed by Adama Donaldson M.D. MF: [id number] Report ID: [id number] Reading Location: [place] [address] Maurice Lima MD IMG DXA PROCEDURES Final Re sult * HM MAMMOGRAPHY (12/25/2023) Impressions Ruiz, Norbert - 12/25/2023 No abnormal findings Historical Provider HEALTH MAINTENANCE Final Result * Colonoscopy (12/17/2023 4:24 PM CDT) Anatomical Region Laterality Modality Other Historical Provider ENDOSCOPY PROCEDURES Laura l Result from Last 3 Months or Most Recently Relevant to Health Maintenance [place] [address] [facility] MEDICARE MEDICARE [facility] Advance Directives For more information, please contact: [phone] * Full Code (Latest Code Status on File) Date Activated Date Inactivated Comments 11/15/2023 12:49 AM 11/19/2023 8:44 PM Care Teams Image Processing Engineer Relationship Specialty Start Date End Date Maurice Lima MD [address] [place] [address] PCP - General Internal Medicine 08/01/23
--- OUTSIDE RECORDS SUMMARY | 2025-02-17 09:32 | XMS_ITS | Clinical Summary ---
Author Organization [facility] Address [address] [place] [address] Care Team Providers Care On Call Pharmacy Technician Name Role Phone Maurice Lima MD Primary Care Provider [phone] Allergies Active Allergy Reactions Criticality Noted Date [...] 10/15/2024 Assessment & Plan (10/15/2024 12:37 PM LOOPER OPERATOR): Magnesium level is slightly low at 1.6. She takes magnesium 1 tablet daily. I told her to take it twice daily Nonrheumatic tricuspid valve regurgitation 01/07 SVT (supraventricular tachycardia) 01/03/2024 High risk medication use 01/03/2024 Junctional tachycardia 11/15/2023 Assessment & Plan (11/29/2023 10:53 AM CDT): Resolved Assessment & Plan (11/15/2023 8:09 AM LOOPER OPERATOR): EKG showed junctional tachycardia. Patient was directed immediately to the emergency room. Acute systolic (congestive) heart failure 2023 Assessment & Plan (11/29/2023 10:52 AM CDT): Patient with acute systolic congestive heart failure. She will continue current medications. We gave her samples of Entresto. Continue low-salt diet. Follow-up with the cutting inspector. BMI 24.0-24.9, adult 08/22/2023 Assessment & Plan (08/22/2023 4:02 PM LOOPER OPERATOR): Continue a heart healthy diet with regular physical activity Encounter for well woman jacqueline sosa with routine gynecological exam 08/22/2023 Assessment & Plan (08/22/2023 4:02 PM LOOPER OPERATOR): Pap smear with HPV cotesting completed. Order [...] low-salt diet. She is followed by the cutting inspector. Assessment & Plan (10/15/2024 7:05 AM LOOPER OPERATOR): Patient has ejection fraction of 30-35%. She will continue current medications. She will continue diuretics and low-salt diet. She is followed by the cutting inspector. Assessment & Plan (07/15/2024 7:36 AM CDT): Patient has ejection fraction of 30-35%. She will continue current medications. She will continue diuretics and low-salt diet. She is followed by the cutting inspector. Assessment & Plan (04/09/2024 7:37 AM CDT): Patient has ejection fraction of 30-35%. She will continue current medications. She will continue diuretics and low-salt diet. She is followed by the cutting inspector. Assessment & Plan (01/14/2024 7:52 AM CDT): Patient has ejection fraction of 30-35%. She will continue current medications. She will continue diuretics and low-salt diet. She is followed by the cutting inspector. Assessment & Plan (11/29/2023 10:53 AM CDT): Patient has ejection fraction of 30-35%. She will continue current medications. She will continue diuretics and low-salt diet. She is followed by the cutting inspector. Assessment & Plan (08/01/2023 9:17 AM LOOPER OPERATOR): Status post AICD placement and followed by the cutting inspector. Hypertension, essential 08/01/2023 Assessment & Plan (02/11/2025 7:15 AM CDT): Continue current medications. Discussed low-salt diet. Discussed exercise on regular basis. Will continue to monitor Assessment & Plan (10/15/2024 7:05 AM LOOPER OPERATOR): Continue current medications. Discussed low-salt diet. Discussed [...] monitor Assessment & Plan (11/14/2023 4:53 PM LOOPER OPERATOR): Patient is maintained on olmesartan and carvedilol Assessment & Plan (08/01/2023 9:17 AM LOOPER OPERATOR): Blood pressure is elevated. Patient said that her blood pressure is always high when she goes to doctor's offices. Her blood pressure when she was seen by her cutting inspector recently was 160/80. Patient said that her blood pressure is normal at home. Continue low-salt diet. She does not want adjustments in her medications. Ventricular tachycardia 08/01/2023 Assessment & Plan (10/15/2024 12:37 PM LOOPER OPERATOR): Status post AICD placement. Followed by the cutting inspector Assessment & Plan (11/29/2023 10:53 AM CDT): Status post AICD placement Assessment & Plan (11/14/2023 4:53 PM LOOPER OPERATOR): Status post AICD placement Assessment & Plan (08/01/2023 9:17 AM LOOPER OPERATOR): Status post AICD and followed by the cutting inspector Dyslipidemia 08/01/2023 Assessment & Plan (02/11/2025 7:15 AM CDT): Patient is vegetarian. Continue low-fat diet. Assessment & Plan (10/15/2024 7:05 AM LOOPER OPERATOR): Patient is vegetarian. Continue low-fat diet. Assessment [...] diet. Assessment & Plan (08/01/2023 9:16 AM LOOPER OPERATOR): Patient is vegetarian. Continue low-fat diet. Blood [...] daily. Assessment & Plan (10/15/2024 7:05 AM LOOPER OPERATOR): Patient is maintained on metoprolol, Entresto and spironolactone. Continue low- salt diet Assessment & Plan (07/15/2024 10:13 AM CDT): Patient is controlled on current medications. She has mild bilateral leg edema. Increase spironolactone to 50 mg daily.. Followed by the cutting inspector Assessment & Plan (04/09/2024 7:36 AM CDT): Patient is controlled on current medications. She is euvolemic. Followed by the cutting inspector Assessment & Plan (01/14/2024 7:50 AM CDT): Patient is controlled on current medications. She is euvolemic. Followed by the cutting inspector Assessment & Plan (11/14/2023 4:53 PM LOOPER OPERATOR): Patient with history of chronic congestive heart failure. Patient presented with coughing and bilateral leg edema. Patient was found to have junctional tachycardia with heart rate of 140 per minute. Discuss that with the patient and her son and she will be directed to the emergency room for further evaluation. Assessment & Plan (08/01/2023 9:16 AM LOOPER OPERATOR): Patient is asymptomatic. Most recent ejection fraction was normal. Patient is followed by the cutting inspector Cardiac resynchronization th erapy defibrillator (TRAINING SPECIALIST-D) in place 08/01/2023 Assessment & Plan (02/11/2025 10:07 AM CDT): Patient has ICD for history of V-tach Assessment & Plan (01/14/2024 7:56 AM CDT): Patient has ICD for history of V-tach Encounters Date Type Department Care Team Description 02/16/2025 Telephone [facility] Cardiology [address] [facility] [address] [phone] Portillo Maddox MD tachycardia 02/11/2025 9:30 AM CDT Office Visit [facility] Internal Medicine [address] [place] [phone] Maurice Lima MD Chronic combined systolic (congestive) and diastolic (congestive) heart failure (HCC) (Primary Dx); Dyslipidemia; Hypertension, essential; Nonischemic cardiomyopathy (HCC); Osteopenia of multiple sites; BMI < 18.5; Breast cancer screening by mammogram; Cardiac resynchronization therapy defibrillator (TRAINING SPECIALIST-D) in place 01/27/2025 Orders Only [facility] Internal Medicine [address] [place] [phone] Maurice Lima MD 01/08/2025 7:00 AM CDT Ancillary Procedure [facility] Cardiology [address] [place] [phone] Nonischemic cardiomyopathy (HCC); V-tach (HCC); Cardiac resynchronization therapy defibrillator (TRAINING SPECIALIST-D) in place 12/15/2024 Telephone [facility] Cardiology [address] [place] [phone] Portillo Maddox MD Device alert 11/19/2024 Results Follow-Up [facility] Medicine [address] [place] [phone] Maurice Lima MD Dexa Axial Skeleton Bone Density 1 or 2 Site 11/18/2024 8:41 AM LOOPER OPERATOR - 11/18/2024 11:59 PM LOOPER OPERATOR Hospital Encounter [facility] Office Bldg [address] [facility] [address] [facility] [address] [place] [address] Screening due; Postmenopausal Discharge Disposition: Discharge to home or self care from Last 3 Months Immunizations Immunization Administration Dates Next Due Influenza, Unspecified 10/15/2024(Deferr ed: Patient Refused),07/15/2024(Deferred: Patient Refused),04/09/2024(Deferred: Patient Refused),11/14/2023(Deferred: Patient decision),08/22/2023(Deferred: Patient decision),08/01/2023(Deferred: Patient decision),06/30/2022(Deferred: Patient decision),06/27/2022(Deferred: Patient decision),06/21/2022(Deferred: Patient Refused) Surgical History Surgery Date Site/Laterality Comments CARDIAC DEFIBRILLATOR PLACEMENT Medical History Medical History Date Comments CHF (congestive heart failure) (HCC) Hypertension Cardiomyopathy (HCC) Family History Medical History Relation Name Comments No Known Problems Father Esophageal cancer Mother Relation Name Status Comments Father Mother Social History Tobacco Use Types Packs/Day Years Used Date Smoking Tobacco: Never Smokeless Tobacco: Never Tobacco Cessation:Counseling Given: Not Answered [facility] Utilities Answer Date Recorded In the past 12 months has th e electric, gas, oil, or water company threatened [...] often do you attend chur ch or alevism services? Never 11/18/2023 Do you belong to any clubs o r organizations such as bahai groups, unions, fraternal or athletic groups, or [...] place to sleep or slept in a mcfp (including now)? No 11/15/2023 Personal Safety Answer Date Recorded Have you ever been in or are you currently in a harmful physical or emotional relationship or is someone making you feel afraid or unsafe? Denies 11/14/2023 Comments No Sex and Gender Information Value Date Recorded Sex Assigned at Not on file Legal Sex Female 6:39 AM LOOPER OPERATOR Gender Identity Not on file Sexual Orientation Not on file Obstetrics History Last Filed Vital Signs Vital Sign Reading [...] 02/11/2025 9:15 AM CDT Plan of Treatment Health Maintenance Due Date Last Done Comments Hepatitis C Screening 1955 Hepatitis B Screening 1972 Breast Cancer Screening-Mammogram 12/24/2024 024 Well Visit 65+ 01/13/2025 01/14/2024 Depression Screening 10/15/2025 10/15/2024, 07/15/2024, 04/09/2024, Additional history exists Fall Risk Assessment 10/15/2025 10/15/2024, 07/15/2024, 04/09/2024, Additional history exists Osteoporosis Screening-Bone Density Scan 11/18/2026 11/18/2024 Colon Cancer Screening-Colonoscopy 12/16/2033 12/17/2023 DTaP/Tdap/Td Vaccine Discontinued Influenza Vaccine Discontinued Pneumococcal vaccine 65+ Discontinued Zoster Vaccine Discontinued Procedures Procedure Name Priority Date/Time Associated Diagnosis Comments MAGNESIUM Routine 01/27/2025 12:20 PM CDT COMPREHENSIVE METABOLIC PANEL Routine 01/27/2025 12:20 PM CDT SPECIMEN STATUS REPORT Routine 01/27/2025 12:20 PM CDT CBC/DIFF AMBIGUOUS DEFAULT Routine 01/27/2025 12:20 PM CDT DEVICE CHECK - REMOTE Routine 01/08/2025 9:30 AM CDT Nonischemic cardiomyopathy (HCC) V-tach (HCC) Cardiac resynchronization therapy defibrillator (TRAINING SPECIALIST-D) in place DEXA AXIAL SKELETON BONE DENSITY 1 OR MORE SITES Schedule Routine, Read Routine (OP Routine) 11/18/2024 9:07 AM LOOPER OPERATOR Screening due Postmenopausal HM MAMMOGRAPHY Routine 12/25/2023 COLONOSCOPY Routine 12/17/2023 4:24 PM CDT from Last 3 Months or Most Recently Relevant to Health Maintenance Results * Specimen Status Report (01/27/2025 12:20 PM CDT) Specimen Status Report Comment [facility] - 01 Comment: Eleazar Whittaker CMP14 Default Eleazar Whittaker CMP14 Default A hand-written panel/profile was received from your office. In accordance with the [facility] Ambiguous Test Code Policy dated March 2003, we have completed your order by using the closest currently or formerly recognized AMA panel. We have assigned Comprehensive Metabolic Panel (14), Test Code #055973 to this request. If this is not the testing you wished to receive on this specimen, please contact the [facility] Client [facility]ical Services Department to clarify the test order. We appreciate your business. 01/27/2025 12:2 0 PM CDT 01/27/2025 Narrative [facility] - 01/28/2025 7:09 AM CDT Performed at: [address] [place] [id number] Mortar Carrier: Jasper Montoya PhD, Phone: [phone] us Maurice Lima MD LAB BLOOD ORDERABLES Final Result [facility] - 01 * (ABNORMAL) CBC/Diff Ambiguous [...] from your office. In accordance with the [facility] Ambiguous Test Code Policy dated March 2003, we have assigned CBC with Differential/Platelet, Test Code #532374 to this request. If this is not the testing you wished to receive on this specimen, please contact the [facility]/ Technical Services Department to clarify the test order. We appreciate your business. 01/27/2025 12:2 0 PM CDT 01/27/2025 Narrative [facility] - 01/28/2025 7:09 AM CDT Performed at: [address] [place] [id number] Mortar Carrier: Jasper Montoya PhD, Phone: [phone] us Maurice Lima MD LAB BLOOD ORDERABLES Final Result [facility] * Magnesium (01/27/2025 12:20 PM CDT) Magnesium 1.8 1.6 - 2.3 mg/dL [facility] - 01/27/2025 12:2 0 PM CDT 01/27/2025 Narrative [facility] - 01/28/2025 9:10 AM CDT Performed at: [address] [place] [id number] Mortar Carrier: Jasper Montoya PhD, Phone: [phone] Maurice Lima MD LAB BLOOD ORDERABLES Final Result [facility] - 01 * (ABNORMAL) Comprehensive metabolic panel (01/27/2025 12:20 PM CDT) [facility] Glucose 105(H) 70 - 99 mg/dL [facility] [...] - 01/28/2025 9:10 AM CDT Performed at: [address] [place] [address] [place], [place] [id number] Mortar Carrier: Jasper Montoya PhD, Phone: [phone] Specimen Comment: A courtesy copy of this report has been sent to [phone] Maurice Lima MD LAB BLOOD ORDERABLES Final Result [facility] - 01 * DEVICE CHECK - [...] @ 0.5 ms Pacing % <1% 94% TRAINING SPECIALIST Battery Status: 3.0 years to APRIL. Charge time 8.4 seconds. Episodes last 90 days: 9 AT/AF episodes: none stored. AF [place] <1 % 60 SVT episodes and 32 [...] Continue current device follow-up. Portillo Maddox MD us Blair Carmona MD [facility] Final Result * Dexa Axial Skeleton Bone Density 1 or 2 Site (11/18/2024 9:07 AM LOOPER OPERATOR) Anatomical Region Laterality Modality Body N/A Mammography 11/18/2024 2:54 PM LOOPER OPERATOR Narrative 11/18/2024 2:56 PM LOOPER OPERATOR EXAM DESCRIPTION: DEXA AXIAL SKELETON BONE DENSITY 1 OR MORE SITES REASON FOR STUDY: 69 y/o year old F with given history of: Annual screening due Postmenopausal Addiction Counselor/Model: [employer] A (S/N [id number]) Facility LSC value of 0.022 for the [...] Adama Donaldson M.D. MF: ADITI Report ID: [id number] Reading Location: [place] [address] Procedure Note Adama Donaldson MD - 11/18/2024 EXAM DESCRIPTION: DEXA AXIAL SKELETON BONE DENSITY 1 OR MORE SITES REASON FOR STUDY: 69 y/o year old F with given history of: Annual screening due Postmenopausal Addiction Counselor/Model: [employer] A (S/N [id number]) Facility LSC value of 0.022 for the [...] Adama Donaldson M.D. MF: ADITI Report ID: [id number] Reading Location: [place] [address] Maurice Lima MD IMG DXA PROCEDURES Final Re sult * HM MAMMOGRAPHY (12/25/2023) Impressions Norbert Ruiz - 12/25/2023 No abnormal findings Historical Provider HEALTH MAINTENANCE Final Result * Colonoscopy (12/17/2023 4:24 PM CDT) Anatomical Region Laterality Modality Other us Historical Provider ENDOSCOPY PROCEDURES Laura l Result from Last 3 Months or Most Recently Relevant to Health Maintenance Insurance [facility] MEDICARE MEDICARE [facility] Advance Directives For more information, please contact: [phone] * Full Code (Latest Code Status on File) Date Activated Date Inactivated Comments 11/15/2023 12:49 AM 11/19/2023 8:44 PM Care Teams On Call Pharmacy Technician Relationship Specialty Start Date End Date Maurice Lima MD [address] [facility] [address] [address] PCP - General Internal Medicine 08/01/23
--- OUTSIDE RECORDS SUMMARY | 2025-02-17 09:33 | XMS_ITS | Clinical Summary ---
Author Organization [facility] [employer] Address [address] [place] [address] Care Team Providers Care Websphere Portal Architect Name Role Phone Fito Pollard MD Unavailable Mae Teague MD Primary Care Provider [phone] Janes Darden MD Unavailable [phone] Arvind Mckeon MD Unavailable [phone] Source Comments [facility],non-owned Affiliates and Associated Physician Practices is amultiple site organization consisting of ambulatory clinics and hospital sitesin [place], [place], [place] and [place]. This disclosure is being madepursuant to the Care Everywhere program and may not contain all information available regarding this patient. Last updated 18.[facility] Allergies Active Allergy Reactions Criticality Noted Date Comments Sulfa Drugs Rash 10/05/2009 Medications * Be aware that medications may not be up to date on this document. Alwaysverify current medications with the patient. olmesartan-hydr oCHLOROthiazide (Benicar HCT) 40-25 MG tablet TAKE 1 TABLET BY MOUTH EVERY DAY 90 tablet 4 12/18/2022 Active Vitamin D3 (Cholecalcifero l) 50 MCG (1999) capsule Take 2 (two) capsules by mouth once daily 10/21/2022 Active carvedilol (Coreg) 25 MG tablet TAKE 1 TABLET BY MOUTH TWICE A DAY 180 tablet 3 06/19/2023 Active Active Problems Patient Care Coordination No te Formatting of this note migh t be different from the original. Race Engine Builder - Fito Pollard M.D. 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 ICD - Quadra Assura MP [id number] - Implnated 06/24/[address] Tomer Garcia RA: SJ 1998 SN: [id number] (Implanted 06/24/2013) RV: SJM 7122 SN: [id number] (Implanted 06/24/2013) LV: [facility] 1458 SN: [id number] (Implanted 06/24/2013) Essential hypertension, benign 03/15/2015 Family History Medical History Relation Name Comments Cancer - Liver Maternal Grandmother Cancer - Esophageal Mother Hypertension Sister 2 Relation Name Status Comments Brother Alive no known heart disease Father Alive alive at 75 wit h no known heart disease Maternal Grandmother Mother (Age 75) due t o renal failure shorly after being diagnosed with esophageal cancer Sister 1 Alive has hypertensio n but no known heart disease Sister 2 Social History Tobacco Use Types Packs/Day Years Used Date Smoking Tobacco: Never Smokeless Tobacco: Never Tobacco Cessation:Counseling Given: Not Answered Alcohol Use Standard Drinks/Week Comments No 0 (1 standard drink = 0.6 oz pur e alcohol) PHQ-2 Answer Date Recorded Patient Health Questionnaire-2 Score 0 07/02/2023 Comments No Sex and Gender Information Value Date Recorded Sex Assigned at Not on file Legal Sex Female 7:52 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 SERVICE 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 Gender Identity Not on file Sexual Orientation Not on file Last Filed Vital Signs Vital Sign Reading Time Taken Comments Blood Pressure 160/80 07/02/2023 10:24 AM CDT Pulse 90 07/02/2023 10:24 AM CDT Temperature 36.9 C (98.4 F) 07/02/2023 10:24 AM CDT Respiratory Rate 17 01/12/2021 1:15 PM CDT Oxygen Saturation 98% 03/07/2021 11: 14 AM CDT Inhaled Oxygen Concentration - - Weight 67.9 kg (149 lb 12.8 oz) 023 10:24 AM CDT Height 160 cm (5' 3) 06/26/2022 10:31 AM CDT Body Mass Index 26.54 06/26/2022 10:31 AM CDT Plan of Treatment Health Maintenance Due Date Last Done Comments BONE DENSITY TESTING 1955 CT COLONOGRAPHY - COLON CA SCREENING 1955 FIT - COLON CA SCREENING 1955 FLEX SIG - COLON CA SCREENING 1955 MEDICARE AWV 12 MONTHS 1955 HEPATITIS C SCREENING 07/22/1972 DTAP/TDAP/TD VACCINES (1 - Tdap) 1973 PNEUMOCOCCAL VACCINE 50+ (1 of 2 - PCV) 1973 ZOSTER VACCINE (1 of 2) 2004 Respiratory Syncytial Virus (RSV) Vaccine Pt: or over 60 yrs (1 - Risk 60-74 years 1-dose series) 2014 LIPID TESTING 08/18/2014 08/18/2009 MAMMOGRAM 04/15/2021 04/15/2019, 08/18/2009 COVID-19 VACCINE (1 - 2023-2 5 season) 2024 DEPRESSION SCREENING 09/16/2024 01/14/2023, 06/26/2022 INFLUENZA VACCINE (Season Ended) 2025 COLOGUARD (AGES 45-75) - COL ON CA SCREENING 01/17/2027 01/18/2024 COLON MONITORING 12/16/2033 12/17/2023, 03/23/2017, 03/23/2017 COLONOSCOPY - COLON CA SCREENING 12/16/2033 12/17/2023, 03/23/2017, 03/23/2017 Colorectal Cancer Screening 12/16/2033 HEPATITIS B VACCINE Aged Out No longe r eligible based on patient's age to complete this topic HIB VACCINE Aged Out No longer eligi ble based on patient's age to complete this topic HPV VACCINE Aged Out No longer eligi ble based on patient's age to complete this topic MENINGOCOCCAL (Group B) VACCINE SHARED DECISION-MAKING Aged Out No longer eligible based on patient's age to complete this topic MENINGOCOCCAL GROUPS A/C/Y/W VACCINE Aged Out No longer eligible b ased on patient's age to complete this topic Procedures Procedure Name Priority Date/Time Associated Diagnosis Comments MAMMO BILAT SCREENING Routine 04/15/2019 ENDOSCOPY, COLON, SCREENING Routine 03/23/2017 7:46 AM CDT LIPID PROFILE Today 08/18/2009 1:55 PM HOME SERVICE TECHNICIAN Shortness of Breath from Last 3 Months or Most Recently Relevant to Health Maintenance Results * MAMMO BILAT SCREENING (04/15/2019) Anatomical Region Laterality Modality Breast Bilateral Mammography us Provider Unknown MAMMO ORDERABLES Final Result * ENDOSCOPY, COLON, SCREENING (03/23/2017 7:46 AM CDT) Report Endoscopy POC _ Patient Name: Trevor Foster Procedure Date: 03/23/2017 7:46 AM Date of : 1955 Admit Type: Outpatient Age: 61 Gender: Female Attending MD: Lui Iglesias MD _ Procedure: Colonoscopy Indications: Colon cancer screening in patient at increased risk: Family history of 1st-degree relative with colon polyps, Screening in patient at increased risk: Family history of 1st-degree relative with colorectal cancer Providers: Lui Iglesias MD (Doctor), Breanna Jameson RN, Edilma Sosa RN Referring MD: Mae Teague MD (Referring MD) Medicines: Midazolam 6 mg IV, Meperidine 75 mg IV Complications: No immediate complications. _ Procedure: Pre-Anesthesia Assessment: - Prior to the procedure, a History and Physical was performed, and patient medications and allergies were reviewed. The patient is competent. The risks and benefits of the procedure and the sedation options and risks were discussed with the patient. All questions were answered and informed consent was obtained. Patient identification and proposed procedure were verified by the physician and the nurse in the procedure room. Mental Status Examination: alert and oriented. Airway Examination: normal oropharyngeal airway and neck mobility. Respiratory Examination: clear to auscultation. CV Examination: normal. Prophylactic Antibiotics: The patient does not require prophylactic antibiotics. Prior Anticoagulants: The patient has taken no previous anticoagulant or antiplatelet agents. ASA Grade Assessment: II - A patient with mild systemic disease. After reviewing the risks and benefits, the patient was deemed in satisfactory condition to undergo the procedure. The anesthesia plan was to use moderate sedation / analgesia (conscious sedation). Immediately prior to administration of medications, the patient was re-assessed for adequacy to receive sedatives. The heart rate, respiratory rate, oxygen saturations, blood pressure, adequacy of pulmonary ventilation, and response to care were monitored throughout the procedure. The physical status of the patient was re-assessed after the procedure. After I obtained informed consent, the scope was passed under direct vision. Throughout the procedure, the patient's blood pressure, pulse, and oxygen saturations were monitored continuously. The Colonoscope was introduced through the anus and advanced to the cecum, identified by appendiceal orifice and ileocecal valve. The colonoscopy was performed without difficulty. The patient tolerated the procedure well. The quality of the bowel preparation was good. Impression: - The entire examined colon is normal on direct and retroflexion views. - No specimens collected. Findings: The perianal and digital rectal examinations were normal. Pertinent negatives include normal sphincter tone. The entire examined colon appeared normal on direct and retroflexion views. _ Recommendation: - Discharge patient to home (ambulatory). - Continue present medications. - Repeat colonoscopy [day] for screening purposes. - Return to primary care physician as previously scheduled. Procedure Code(s): --- Professional --- G0105, Colorectal cancer screening; colonoscopy on individual at high risk --- Technical --- G0105, Colorectal cancer screening; colonoscopy on individual at high risk Diagnosis Code(s): --- Professional --- Z83.71, Family history of colonic polyps Z80.0, Family history of malignant neoplasm of digestive organs --- Technical --- Z83.71, Family history of colonic polyps Z80.0, Family history of malignant neoplasm of digestive organs CPT copyright 2015 [employer]. All rights reserved. The codes documented in this report are preliminary and upon medical biller/coder review may be revised to meet current compliance requirements. Lui Iglesias MD 03/23/2017 8:40:52 AM This report has been signed electronically. Number of Addenda: 0 Note Initiated On: 03/23/2017 7:46 AM [facility] 03/23/2017 7:46 AM CDT Lui Iglesias MD GI PROCEDURE ORDERABLES Edited Result - Final [facility] * (ABNORMAL) LIPID PROFILE (08/18/2009 1:55 PM HOME SERVICE TECHNICIAN) Cholesterol 227(H) <200 mg/dl [facility] Triglycerides 63 <150 mg/dl [facility] HDL Cholesterol 74 >=40 mg/dl [facility] VLDL Calculated 13 <=30 mg/dl [facility] LDL Calculated 140(H) <100 mg/dl [facility] Cholesterol Risk Factor 3.07 <4.45 [facility] Comment Lipid [facility] Comment: Normal values based on [place] [employer] guidelines. LIPID PROFILE GUIDELINES Total Cholesterol Category -------- Less than 200 mg/dl Desirable level that puts you at lower risk for heart disease. A cholesterol level of 200 mg/dl or greater increases your risk. 200 to 239 mg/dl Borderline high 240 mg/dl and above High blood cholesterol. A person with this level has more than twice the risk of heart disease compared to someone whose cholesterol is below 200 mg/dl. HDL Cholesterol Category -------- Less than 40 mg/dl Low HDL cholesterol. A major risk factor for heart disease. 40 to 59 mg/dl Borderline low. 60 mg/dl and above High HDL cholesterol. An HDL of 60 and above is considered protective against heart disease. LDL Cholesterol Category -------- Less than 100 mg/dl Optimal 100 to 129 mg/dl Near or above optimal 130 to 159 mg/dl Borderline high 160 to 189 mg/dl High 190 mg/dl and above Very high Triglyceride Category -------- Less than 150 mg/dl Normal 150 to 199 mg/dl Borderline high 200 to 499 mg/dl High 500 mg/dl and above Very high BLOOD SPECIMEN / Unknown 08/18/2009 1:55 PM HOME SERVICE TECHNICIAN 08/18/2009 1:55 PM HOME SERVICE TECHNICIAN Jakub Fitzpatrick MD LAB - CHEMISTRY ORDERABLES F inal Result [facility] [address] [place] [address] from Last 3 Months or Most Recently Relevant to Health Maintenance Insurance [facility] [place] [address] PENDING SALE TO [facility] MEDICARE MEDICARE AET Advance Directives * Full Code (Latest Code Status on File) Date Activated Date Inactivated Comments 01/12/2021 11:31 AM 01/12/2021 2:40 PM Care Teams Websphere Portal Architect Relationship Specialty Start Date End Date Mae Teague MD [address] [address] PCP - General Internal Medicine 09/26/16 Fito Pollard MD Cardiovascular Disease 03/16/15 Janes Darden MD [address] [facility] [address] [place] [address] Cardiovascular Disease 12/02/18 Arvind Mckeon MD [address] [facility] [address] [place] [address] Electrophysiology 09/07/19
--- OUTSIDE RECORDS SUMMARY | 2025-02-17 09:33 | XMS_ITS | Continuity of Care Document ---
Author Organization [facility] Address [address] [place] [address] Phone Care Team Providers Care Product Manager Financial Services Name Role Phone Rinku Hobson Unavailable Unavailable Advance Directives Directive Yes / No Effective Date File Name No Information Encounters Encounter Description Practice Location Reason(s) For Visit Diagnoses Date Provider Providers Copied on Encounter [facility], [id number] [place] [address] [address], [place], [place], [id number], [place] tel:[phone] [facility] No Information [address] , [address], [place], [address], [place]. tel:[phone] Family History Family Member Type Diagnosis Age At Onset No Information Payers Payer name Insurance type Covered republican ID Authoriza tion(s) No Information Social History Type Description Quantity Date Captured Comments Sex Female Smoking Status No Information Chief Complaint And Reason For Visit No Information Reason For Referral Reason For Referral No Information History Of Present Illness Encounter Date Complaint History Of Prese nt Illness No Information Functional Status Date Functional Assessmen t No Information Instructions Date Instruction Additional Infor mation No Information Assessments Type Assessment Date No Information Patient Care Teams Name Effective Dates (start - stop) Status Members No Information
== END 2025-02-17 09:24 | disposition home or self-care (01) ==
LOC: ANHIMG 09:25
PROVIDERS: PCP Internal Medicine; Visit Provider Internal Medicine
DX: Z12.31 Encounter for screening mammogram for malignant neoplasm of breast (principal)
CPT/HCPCS: 77063; 77067